=== PATIENT | male | born 1960 | race Caucasian/White ===

== ENCOUNTER 2023-04-22 20:42 | Emergency (ER) | payer MEDICAID ==
[~2023-04-22] VITALS: Ht 165.1 cm; Wt 65.8 kg
[2023-04-22] MEDS ORDERED: IBUPROFEN 600 MG TABLET PO ONE (21:30)
[2023-04-22] MEDS ORDERED: IBUPROFEN 600 MG TABLET ONE (21:35)
[2023-04-22] MEDS ORDERED: HYDR-3980 PO (22:27)
[2023-04-22] MEDS ORDERED: ONDA4TAB5 PO (22:27)
[2023-04-22 22:57] VITALS: BP 120/61; TEMP 97.8; O2SAT 98
== END 2023-04-22 22:50 | disposition home or self-care (01) ==
LOC: ER 20:59
DX: M79.605 Pain in left leg (principal); M54.50 Low back pain, unspecified; E11.9 Type 2 diabetes mellitus without complications; F17.210 Nicotine dependence, cigarettes, uncomplicated; Z88.8 Allergy status to other drugs, medicaments and biological substances; Z79.899 Other long term (current) drug therapy
CPT/HCPCS: 72110; 72170; 73551; 73590; A4663

== ENCOUNTER 2023-05-15 12:34 | Emergency (ER) | payer MEDICAID ==
[~2023-05-15] VITALS: Ht 165.1 cm; Wt 65.8 kg
[~2023-05-15 12:34] MED LIST: HYDR-3980 PO; ONDA4TAB5 PO
[2023-05-15] MEDS ORDERED: MORPHINE SULFATE 4 MG/1 ML DISP.SYRIN ONE (13:14)
[2023-05-15] MEDS ORDERED: MORPHINE SULFATE 4 MG/1 ML DISP.SYRIN IM ONE (13:15)
[2023-05-15] MEDS ORDERED: ONDANSETRON ODT 4 MG TAB.RAPDIS SL ONE (13:15)
[2023-05-15] MEDS ORDERED: ONDANSETRON ODT 4 MG TAB.RAPDIS ONE (13:15)
[2023-05-15] MEDS ORDERED: METH4TAB3 PO ×2 (13:49→15:15)
[2023-05-15] MEDS ORDERED: GABA-532 PO ×2 (13:49→15:15)
[2023-05-15 14:19] VITALS: BP 146/77; TEMP 98.2; O2SAT 97
== END 2023-05-15 14:25 | disposition home or self-care (01) ==
LOC: ER 12:41
DX: M54.32 Sciatica, left side (principal); E11.9 Type 2 diabetes mellitus without complications; F17.210 Nicotine dependence, cigarettes, uncomplicated; Z88.8 Allergy status to other drugs, medicaments and biological substances; Z79.899 Other long term (current) drug therapy
CPT/HCPCS: 99283; 96372; J2270; A4663; Q0162